=== PATIENT | male | born 1945 | race Hispanic/Latino ===

== ENCOUNTER 2019-11-27 21:26 | Emergency (ER) | payer OTHER ==
[~2019-11-27] VITALS: Ht 177.8 cm; Wt 93.0 kg
[~2019-11-27 21:26] MED LIST: ASPIR 8181 MG PO; ENALAPRIL MALEA20 MG PO; GLIMEPIRIDE2 MG PO; KEFLEX500 MG PO; METOPROLOL TART50 MG PO; SIMVASTATIN20 MG PO; TYLENOL WITH C1 EACH PO
--- OUTSIDE RECORDS SUMMARY | 2019-11-27 21:30 | XMS REPORT ---
Author Author [facility] Address Unknown Phone Unavailable Care Team Providers Care Parking Meter Attendant Name Role Phone Unavailable Unavailable Payers Payer Name Policy Type Policy Number Effective Date Expiration Date Problems This patient has no known problems. Allergies, Adverse Reactions, Alerts Allergy Name Allergy Type Status Severity Reaction(s) Onset Date Inactive Date Treating Clinician Comments No Known Allergies DA Active U 2016-08-27 00:00:00 Medications This patient has no known medications. Results Test Description Test Time Test Comments Text Results Atomic Results Result Comments BLADDER,BIOPSY 2019-10-17 16:47:00 RUN DATE: 10/17/19 [place] - Lab PAGE 1 RUN TIME: 1647 Specimen Inquiry RUN USER: INTERFACE PATIENT: GORGE WARREN LOC: TK #: [id number] AGE/SX: 73/M ROOM: RE10/13/19REG DR: Charli Ivy MD : 45 BED: DIS: STATUS: DEP [facility] TLOC: SPEC #: [id number] RECD: 10/13/19 STATUS: KHADRA [facility] #: [id number] NIYA: 10/13/19- [facility] DR: Charli Ivy MD ENTERED: 10/13/19 SP TYPE: BX FARZAD HOPEPR DR: Judy Pruitt MD ORDERED: GROSS COPIES TO: Charli Ivy MD [address] [place], [place] [id number] Judy Pruitt MD [address] [facility] [place], [place] [id number] PROCEDURES: GROSS (10/17/19103) TISSUES: 1. URINARY BLADDER, NOS - BX 2. URINARY BLADDER, NOS - NTERIOR WALL BX 3. URINARY BLADDER, NOS - LEFT LATERAL WALL 4. URINARY BLADDER, NOS - DOME 5. URINARY BLADDER, NOS - RIGHT LATERAL WALL 6. URINARY BLADDER, NOS - TRIGONE 7. URINARY BLADDER, NOS - POSTERIOR WALL CLINICAL HISTORY COLLECTION DATE: 10/13/2019 FINAL DIAGNOSIS Previous tumor biopsy site, biopsy X 3: CHRONIC INFLAMMATION, FOCAL FIBROSIS, AND FOCAL GRANULOMA FORMATION CONSISTENT WITH BCG THERAPY, BLADDER MUCOSA MUSCULARIS PROPRIA PRESENT NEGATIVE FOR MALIGNANCY Anterior wall of bladder, biopsy: MILD CHRONIC INFLAMMATION, BLADDER MUCOSA NEGATIVE FOR MALIGNANCY Left lateral wall X 2, biopsy: MILD CHRONIC INFLAMMATION AND HEMORRHAGE, BLADDER MUCOSA MUSCULARIS PROPRIA PRESENT CONTINUED ON NEXT PAGE RUN DATE: 10/17/19 [facility] PAGE 2 RUN TIME: 1647 Specimen Inquiry RUN USER: INTERFACE SPEC #: [id number] PATIENT: GORGE WARREN #[id number] (Continued) - FINAL DIAGNOSIS (Continued) NEGATIVE FOR MALIGNANCY Bladder dome, biopsy: MILD CHRONIC INFLAMMATION, BLADDER MUCOSA NEGATIVE FOR MALIGNANCY Right lateral wall of bladder, biopsy: PATCHY MILD CHRONIC INFLAMMATION, BLADDER MUCOSA MUSCULARIS PROPRIA PRESENT NEGATIVE FOR MALIGNANCY Trigone, biopsy: PATCHY MILD CHRONIC INFLAMMATION, BLADDER MUCOSA NEGATIVE FOR MALIGNANCY Posterior wall of bladder, biopsy: MILD CHRONIC INFLAMMATION, BLADDER MUCOSA MUSCULARIS PROPRIA PRESENT NEGATIVE FOR MALIGNANCY DMW/ D [phone] MACROSCOPIC The first specimen is received in formalin, labeled with the patient's name, and identified as "previous tumor site biopsy X3". It consists of three damon-white biopsy fragments measuring from 0.3 to 0.5 cm in greatest dimension. The second specimen is received in formalin, labeled with the patient's name, and identified as "anterior wall". It consists of a damon-brown biopsy fragment measuring 0.2 cm. The third specimen is received in formalin, labeled with the patient's name, and identified as "left lateral wall X2". It consists of a damon biopsy fragment measuring 0.25 cm and a damon-brown biopsy fragment measuring 0.25 cm. The fourth specimen is received in formalin, labeled with the patient's nam e, and identified as "dome". It consists of a damon biopsy fragment measuring 0.3 cm. The fifth specimen is received in formalin, labeled with the patient 's name, and identified as "right lateral wall". It consists of a damon biopsy fragment measuring 0.3 cm. The sixth specimen is received in formalin, labeled with the patient's name and identified as "trigone". It consists of a damon biopsy fragment measuring CONTINUED ON NEXT PAGE RUN DATE: 10/17/19 [facility] PAGE 3 RUN TIME: 1647 Specimen Inquiry RUN USER: INTERFACE SPEC #: [id number] PATIENT: ALBERT WARRENO #[id number] ( Continued) MACROSCOPIC (Continued) 0.2 cm. The seventh specimen is received in formalin labeled with the patient's name, and identified as "posterior wall". It consists of a white-damon biopsy fragment measuring 0.25 cm. GROSS PERFORMED AT [facility] [address] [facility] [place] [address] [phone])[phone] MICROSCOPIC All of the stains, including any controls performed, stain appropriately. MICROSCOPIC PERFORMED AT [facility] [address] [place] [address] (p)[phone] PERFORMING SITE Diagnosis performed at: [facility], [place] [address] [place] [address] Signed SIGNATURE ON FILE Lorena Wilkes MD 10/17/19 7167 END OF REPORT GLUBED 2019-10-13 08:25:00 GLUBED (test code=GLUBED) 112 mg/dL 74-106 Performed by certified shell trim operator at [facility] - XR CYSTOURETHRO [id number] 08:12:00 FAX: Charli Malone MD [phone] Pinch: B St: PRE Name: GORGE CASTILLO [facility] : [birth year] Age/S: 73/M [address] [facility] Unit #: [id number] Loc: [place] [address] Phys: Charli Ivy MD Acct: [id number] Dis Date: Status: PRE SDC PHONE #: [phone] Exam Date: 10/13/2019 0800 FAX #: [phone] Reason: SURGERY EXAMS: CPT CODE: [id number] XR CYSTOURETHRO RETRO 73309 HISTORY: Bladder cancer. COMPARISON: None available. Location: al uoroscopic spot images from the OR: Opacification of both collecti ng system noted. For detailed evaluation please see the operative report. at 0812 Reported and signed by: Yonathan King M.D. CC: Charli Ivy M.D. Techno logist: TANG MOLINA JR Trnscrd Date/Time /By: 10/13/2019 (811) : By: [email or web address] Orig Print D/T: S: 10/13/2019 ( 15) PAGE 1 Signed Report [id number] 06:33:00* Test Item Value Reference Range Comments GLUBED (test code=GLUBED) 123 mg/dL 74-106 Performed by certified shell trim operator at [facility] URINALYSIS [id number] 12:37:00* Test Item Value Reference Range Comments UA COLOR (test code=COLU) Light-Yellow YELLOW UA APPEARANCE (test code=APPU) CLEAR CLEAR UA GLUCOSE DIPSTICK (test code=DGLUU) NEGATIVE mg/dL NEGATIVE UA BILIRUBIN DIPSTICK (test code=BILU) NEGATIVE mg/dL NEGATIVE UA KETONE DIPSTICK (test code=KETU) NEGATIVE mg/dL NEGATIVE UA SPECIFIC GRAVITY (test code=SGU) 1.011 1.001-1.035 UA BLOOD DIPSTICK (test code=HANNAH) Negative mg/dL NEGATIVE UA PH DIPSTICK (test code=HOLLEY) 5.5 5.0-8.0 UA PROTEIN DIPSTICK (test code=PROU) 30 (1+) mg/dL NEGATIVE UA UROBILINIOGEN DIPSTICK (test code=URO) Normal mg/dL NEGATIVE UA NITRITE DIPSTICK (test code=VALERY) NEGATIVE NEGATIVE UA LEUKOCYTE ESTERASE W REFLEX (test code=LEUUR) NEGATIVE Parveen/uL NEGATIVE UA WBC (test code=WBCU) 0-5 per HPF 0-5 UA RBC (test code=RBCU) 0-2 #/HPF 0-5 UA EPITHELIAL CELLS (test code=EPIU) None seen per HPF FEW UA BACTERIA (test code=BACU) NONE SEEN #/HPF NONE UA MUCUS (test code=MUCU) FEW #/LPF FEW COMPREHENSIVE METABOLIC [id number] 12:37:00* Test Item Value Reference Range Comments SODIUM (test code=NA) 139 mmol/L 136-145 POTASSIUM (test code=K) 3.9 mmol/L 3.5-5.1 CHLORIDE (test code=CL) 107.0 mmol/L 98-107 CARBON DIOXIDE (test code=CO2) 29.0 mmol/L 21-32 ANION GAP (test code=GAP) 6.9 10-20 GLUCOSE (test code=GLU) 81 mg/dL 74-106 BLOOD UREA NITROGEN (test code=BUN) 20 mg/dL 7-18 GLOMERULAR FILTRATION RATE (test code=GFR) 54 mL/min >=60 Estimated GFR by using Modified MDRD formula.Chronic kidney disease is defined as either kidney damageor GFR <60 mL/min/1.73 m2 for >3 months. CREATININE (test code=CREAT) 1.30 mg/dL 0.7-1.3 BUN/CREATININE RATIO (test code=BUN/CREA) 15.4 10-20 TOTAL PROTEIN (test code=PROT) 7.4 gram/dL 6.4-8.2 ALBUMIN (test code=ALB) 3.6 g/dL 3.4-5.0 GLOBULIN (test code=GLOB) 3.8 gram/dL 2.7-4.2 ALBUMIN/GLOBULIN RATIO (test code=A/G) 0.9 0.75-1.50 CALCIUM (test code=CA) 8.9 mg/dL 8.5-10.1 BILIRUBIN TOTAL (test code=BILT) 0.20 mg/dL 0.0-1.0 SGOT/AST (test code=AST) 17 IUnit/L 15-37 SGPT/ALT (test code=ALT) 30 IUnit/L 12-78 ALKALINE PHOSPHATASE TOTAL (test code=ALKP) 82 IUnit/L 45-117 Note change in reference range due to change in reagent. URINALYSIS [id number] 12:34:00* Test Item Value Reference Range Comments UA COLOR (test code=COLU) Light-Yellow YELLOW UA APPEARANCE (test code=APPU) CLEAR CLEAR UA GLUCOSE DIPSTICK (test code=DGLUU) NEGATIVE mg/dL NEGATIVE UA BILIRUBIN DIPSTICK (test code=BILU) NEGATIVE mg/dL NEGATIVE UA KETONE DIPSTICK (test code=KETU) NEGATIVE mg/dL NEGATIVE UA SPECIFIC GRAVITY (test code=SGU) 1.011 1.001-1.035 UA BLOOD DIPSTICK (test code=HANNAH) Negative mg/dL NEGATIVE UA PH DIPSTICK (test code=HOLLEY) 5.5 5.0-8.0 UA PROTEIN DIPSTICK (test code=PROU) 30 (1+) mg/dL NEGATIVE UA UROBILINIOGEN DIPSTICK (test code=URO) Normal mg/dL NEGATIVE UA NITRITE DIPSTICK (test code=VALERY) NEGATIVE NEGATIVE UA LEUKOCYTE ESTERASE W REFLEX (test code=LEUUR) NEGATIVE Parveen/uL NEGATIVE UA WBC (test code=WBCU) per HPF 0-5 UA RBC (test code=RBCU) per HPF 0-5 UA EPITHELIAL CELLS (test code=EPIU) per HPF Few UA BACTERIA (test code=BACU) per HPF NONE COMPREHENSIVE METABOLIC [id number] 12:34:00* Test Item Value Reference Range Comments SODIUM (test code=NA) 139 mmol/L 136-145 POTASSIUM (test code=K) 3.9 mmol/L 3.5-5.1 CHLORIDE (test code=CL) 107.0 mmol/L 98-107 CARBON DIOXIDE (test code=CO2) mmol/L 21-32 ANION GAP (test code=GAP) 10-20 GLUCOSE (test code=GLU) mg/dL 74-106 BLOOD UREA NITROGEN (test code=BUN) mg/dL 7-18 GLOMERULAR FILTRATION RATE (test code=GFR) mL/min >=60 CREATININE (test code=CREAT) mg/dL 0.7-1.3 BUN/CREATININE RATIO (test code=BUN/CREA) 10-20 TOTAL PROTEIN (test code=PROT) gram/dL 6.4-8.2 ALBUMIN (test code=ALB) g/dL 3.4-5.0 GLOBULIN (test code=GLOB) gram/dL 2.7-4.2 ALBUMIN/GLOBULIN RATIO (test code=A/G) 0.75-1.50 CALCIUM (test code=CA) mg/dL 8.5-10.1 BILIRUBIN TOTAL (test code=BILT) mg/dL 0.0-1.0 SGOT/AST (test code=AST) IUnit/L 15-37 SGPT/ALT (test code=ALT) IUnit/L 12-78 ALKALINE PHOSPHATASE TOTAL (test code=ALKP) IUnit/L 45-117 - XR CHEST 2 [id number] 12:19:00 FAX: Charli Malone MD [phone] [place]: O St: PRE Name: GORGE CASTILLO [facility] : [birth year] Age/S: 73/M [address] [facility] Unit #: [id number] Loc: [place] [address] Phys: Charli Ivy MD Acct: [id number] Dis Date: Status: PRE SDC PHONE #: [phone] Exam Date: 10/10/2019 1136 FAX #: [phone] Reason: PRE OP EXAMS: CPT CODE: [id number] XR CHEST 2 V 55261 REASON FOR EXAM: PRE OP Exam Order Date: 10/10/2019 11:26 AM Ordering M.DZahra: Charli Ivy MD PROCEDURE: - XR CHEST 2 V COMPARISON: Chest radiograph April 01, 2016 FINDINGS: The lungs are c lear other than mild subsegmental atelectasis in the middle lobe. There i s no pleural effusion or pneumothorax. Pulmonary vascularity is within nor mal limits. Cardiomediastinal silhouette is normal in size for lisa hnique. The mediastinal contours are within normal limits. M ild degenerative changes are present in the lower thoracic spine and also in the acromioclavicular joints. Additionally there appears to be posttrau matic changes in the right acromioclavicular joint which is likely chronic . Chronic appearing post traumatic change are also seen in the posterior r ight seventh and eighth ribs. The visualized upper abdomen is with in normal limits. IMPRESSION: Subsegmental atele ctasis in the middle lobe. Lungs are otherwise clear. Location: [facility] at 1219 Reported and signed by: Harley Ellington MD CC: Charli Ivy M.D. Technologist: Adlo esparza RT(R) Trnscrd Date/Time/By: 10/10/2019 ( 9398) : By: [email or web address] [facility] Print D/T: S: 10/10/2019 (4568) PAGE 1 Signed Report CBC W/AUTO [id number] 12:09:00* Test Item Value Reference Range Comments WHITE BLOOD CELL (test code=WBC) 8.8 K/mm3 4.5-12.5 RED BLOOD CELL (test code=RBC) 4.41 mill/mm3 4.0-5.8 HEMOGLOBIN (test code=HGB) 13.7 gram/dL 13.0-17.5 HEMATOCRIT (test code=HCT) 40.9 % 42.0-52.0 MEAN CELL VOLUME (test code=MCV) 92.7 fL 80-98 MEAN CELL HGB (test code=MCH) 31.1 picogram 27.0-33.0 MEAN CELL HGB CONCETRATION (test code=MCHC) 33.5 gram/dL 33.0-36.0 RED CELL DISTRIBUTION WIDTH (test code=RDW) 12.7 % 11.6-16.2 RED CELL DISTRIBUTION WIDTH SD (test code=RDW-SD) 43.5 fL 37.0-51.0 PLATELET COUNT (test code=PLT) 252 K/mm3 150-450 MEAN PLATELET VOLUME (test code=MPV) 11.1 fL 6.7-11.0 NEUTROPHIL % (test code=NT%) 54.9 % 39.0-69.0 IMMATURE GRANULOCYTE % (test code=IG%) 0.2 % 0.0-5.0 LYMPHOCYTE % (test code=LY%) 30.5 % 25.0-55.0 MONOCYTE % (test code=MO%) 9.7 % 0.0-10.0 EOSINOPHIL % (test code=EO%) 4.1 % 0.0-5.0 BASOPHIL % (test code=BA%) 0.6 % 0.0-1.0 NUCLEATED RBC % (test code=NRBC%) 0.0 % 0-0 NEUTROPHIL # (test code=NT#) 4.80 K/mm3 1.8-7.7 IMMATURE GRANULOCYTE # (test code=IG#) 0.02 x10 3/uL 0-0.03 LYMPHOCYTE # (test code=LY#) 2.67 K/mm3 1.0-5.0 MONOCYTE # (test code=MO#) 0.85 K/mm3 0-0.8 EOSINOPHIL # (test code=EO#) 0.36 K/mm3 0.0-0.5 BASOPHIL # (test code=BA#) 0.05 K/mm3 0.0-0.2 NUCLEATED RBC # (test code=NRBC#) 0.00 K/mm3 0.0-0.1 MANUAL DIFF REQUIRED (test code=MDIFF) NO CBC W/AUTO [id number] 12:05:00* Test Item Value Reference Range Comments WHITE BLOOD CELL (test code=WBC) K/mm3 4.5-12.5 RED BLOOD CELL (test code=RBC) mill/mm3 4.0-5.8 HEMOGLOBIN (test code=HGB) 13.7 gram/dL 13.0-17.5 HEMATOCRIT (test code=HCT) % 42.0-52.0 MEAN CELL VOLUME (test code=MCV) fL 80-98 MEAN CELL HGB (test code=MCH) picogram 27.0-33.0 MEAN CELL HGB CONCETRATION (test code=MCHC) gram/dL 33.0-36.0 RED CELL DISTRIBUTION WIDTH (test code=RDW) % 11.6-16.2 RED CELL DISTRIBUTION WIDTH SD (test code=RDW-SD) fL 37.0-51.0 PLATELET COUNT (test code=PLT) K/mm3 150-450 MEAN PLATELET VOLUME (test code=MPV) fL 6.7-11.0 NEUTROPHIL % (test code=NT%) % 39.0-69.0 IMMATURE GRANULOCYTE % (test code=IG%) % 0.0-5.0 LYMPHOCYTE % (test code=LY%) % 25.0-55.0 MONOCYTE % (test code=MO%) % 0.0-10.0 EOSINOPHIL % (test code=EO%) % 0.0-5.0 BASOPHIL % (test code=BA%) % 0.0-1.0 NEUTROPHIL # (test code=NT#) K/mm3 1.8-7.7 LYMPHOCYTE # (test code=LY#) K/mm3 1.0-5.0 MONOCYTE # (test code=MO#) K/mm3 0-0.8 EOSINOPHIL # (test code=EO#) K/mm3 0.0-0.5 BASOPHIL # (test code=BA#) K/mm3 0.0-0.2 BLADDER,[id number] 17:09:00 RUN DATE: 07/14/19 [place] [facility] PAGE 1 RUN TIME: 1710 Specimen Inqui ry RUN USER: INTERFACE PATIENT: GORGE WARREN ACCT #: [id number] LOC: TK U #: [id number] AGE/SX: 73/M ROOM: RE07/13/19[facility] DR: Charli Ivy MD : 45 BED: DIS: STATUS: [facility] TLOC: SPEC #: [id number] RECD: 07/13/19 STATUS: KHADRA RE #: [id number] NIYA: 07/13/19 [facility] DR: Charli Ivy MD ENTERED: 07/13/19 SP TYPE: BX BLAD OTHR DR: Judy Delgado MD ORDERED: GROSS COPIES TO: Charli Ivy MD [address] [facility] [place] [address] Judy Pruitt MD [address] [place] [address] PROCEDURES: GROSS ( 9-1859) TISSUES: 1. URINARY BLADDER, NOS - TUMOR 2. URINARY BL ADDER, NOS - BASE OT TUMOR CLINICAL HISTORY COLLECTION DATE: 07/13/19 BLADDER TUMOR COMMENT The tissue is entirely submitted for h istologic evaluation. Sections show a lesion with a papillary apperance. The tumor cells are mildly to moderately atypical with scattered cells that are mor e markedly atypical with irregular nuclear contours and hyperchromatic nuclei. 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 Areas o f invasion are not identifed in the majority of the tumor fragments. However, focally tumor is seen invading into muscularis propria. Discrete areas of lymp hovascular invasion are not seen. 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 It consists of irregular fragments of friable pink tissue weighing 16.7 grams and measuring 4.0 x 4.0 x 2.8 cm in aggregate. The tissue is entirely submitted for histolo gic evaluation (1A-1I). The second specimen is received in formalin, lab eled with the patient's name and identified as "base of tumor". It consists o f two biopsies of pink tissue each measuring 0.2 cm in greatest diameter, subm itted as (2). GROSS PERFORMED AT [facility] [address] [place] [address] (P) MICROSCOPIC All of the stains, including any controls perfor med, stain appropriately. MICROSCOPIC PERFORMED AT [facility] [address] [place] [address] (P) [phone] PERFORMING SITE Diagnosis performed at: [facility] [place] [address] [place] [id number] Signed S IGNATURE ON FILE Donovan Muhammad MD 07/14/19 5735 ----- ------- END OF REPORT - MACIEL CYSTOURETHRO [id number] 12:08:00 FAX: Charli Malone MD [phone] Pinch: B St: REG Name: GORGE CASTILLO [facility] : [birth year] Age/S: 73/M [facility] Unit #: [id number] Loc: [facility] [place] [address] Phys: Charli Ivy MD Acct: [id number] Dis Date: Status: REG [facility] PHONE #: [phone] Exam Date: 07/13/2019 1152 FAX #: [phone] Reason: CYSTO EXAMS: CPT CODE: [id number] XR CYSTOURETHRO RETRO 69501 HISTORY: Bladder mass. COMPARISON: No recent images are available. 12 fluoroscopic spot images from the OR: Opacification of both collecting system. For detailed evaluation please see the operative report. at 1208 Reported and signed by: Yonathan King M.D. CC: Charli Ivy M.D. Technologist: Layne Bates(Alejo) Trnscrd Date/Time/By: 019 (4028) : By: [email or web address] Orig Print D/T: S: 07/13/2019 (9424) PAGE 1 Signed Report [id number] 11:26:00* Test Item Value Reference Range Comments GLUBED (test code=GLUBED) 142 mg/dL 74-106 Performed by certified shell trim operator at [facility] COMPREHENSIVE METABOLIC [id number] 11:58:00* Test Item Value Reference Range Comments SODIUM (test code=NA) 137 mmol/L 136-145 POTASSIUM (test code=K) 4.3 mmol/L 3.5-5.1 CHLORIDE (test code=CL) 104.0 mmol/L 98-107 CARBON DIOXIDE (test code=CO2) 26.0 mmol/L 21-32 ANION GAP (test code=GAP) 11.3 10-20 GLUCOSE (test code=GLU) 264 mg/dL 74-106 BLOOD UREA NITROGEN (test code=BUN) 22 mg/dL 7-18 GLOMERULAR FILTRATION RATE (test code=GFR) 50 mL/min >=60 Estimated GFR by using Modified MDRD formula.Chronic kidney disease is defined as either kidney damageor GFR <60 mL/min/1.73 m2 for >3 months. CREATININE (test code=CREAT) 1.40 mg/dL 0.7-1.3 BUN/CREATININE RATIO (test code=BUN/CREA) 15.3 10-20 TOTAL PROTEIN (test code=PROT) 7.4 gram/dL 6.4-8.2 ALBUMIN (test code=ALB) 3.7 g/dL 3.4-5.0 GLOBULIN (test code=GLOB) 3.7 gram/dL 2.7-4.2 ALBUMIN/GLOBULIN RATIO (test code=A/G) 1.0 0.75-1.50 CALCIUM (test code=CA) 9.1 mg/dL 8.5-10.1 BILIRUBIN TOTAL (test code=BILT) 0.40 mg/dL 0.0-1.0 SGOT/AST (test code=AST) 19 IUnit/L 15-37 SGPT/ALT (test code=ALT) 27 IUnit/L 12-78 ALKALINE PHOSPHATASE TOTAL (test code=ALKP) 86 IUnit/L 45-117 Note change in reference range due to change in reagent. COMPREHENSIVE METABOLIC [id number] 11:42:00* Test Item Value Reference Range Comments SODIUM (test code=NA) 137 mmol/L 136-145 POTASSIUM (test code=K) 4.3 mmol/L 3.5-5.1 CHLORIDE (test code=CL) 104.0 mmol/L 98-107 CARBON DIOXIDE (test code=CO2) mmol/L 21-32 ANION GAP (test code=GAP) 10-20 GLUCOSE (test code=GLU) mg/dL 74-106 BLOOD UREA NITROGEN (test code=BUN) mg/dL 7-18 GLOMERULAR FILTRATION RATE (test code=GFR) mL/min >=60 CREATININE (test code=CREAT) mg/dL 0.7-1.3 BUN/CREATININE RATIO (test code=BUN/CREA) 10-20 TOTAL PROTEIN (test code=PROT) gram/dL 6.4-8.2 ALBUMIN (test code=ALB) g/dL 3.4-5.0 GLOBULIN (test code=GLOB) gram/dL 2.7-4.2 ALBUMIN/GLOBULIN RATIO (test code=A/G) 0.75-1.50 CALCIUM (test code=CA) mg/dL 8.5-10.1 BILIRUBIN TOTAL (test code=BILT) mg/dL 0.0-1.0 SGOT/AST (test code=AST) IUnit/L 15-37 SGPT/ALT (test code=ALT) IUnit/L 12-78 ALKALINE PHOSPHATASE TOTAL (test code=ALKP) IUnit/L 45-117 CBC W/AUTO [id number] 11:08:00* Test Item Value Reference Range Comments WHITE BLOOD CELL (test code=WBC) 7.6 K/mm3 4.5-12.5 RED BLOOD CELL (test code=RBC) 4.76 mill/mm3 4.0-5.8 HEMOGLOBIN (test code=HGB) 14.7 gram/dL 13.0-17.5 HEMATOCRIT (test code=HCT) 43.7 % 42.0-52.0 MEAN CELL VOLUME (test code=MCV) 91.8 fL 80-98 MEAN CELL HGB (test code=MCH) 30.9 picogram 27.0-33.0 MEAN CELL HGB CONCETRATION (test code=MCHC) 33.6 gram/dL 33.0-36.0 RED CELL DISTRIBUTION WIDTH (test code=RDW) 12.2 % 11.6-16.2 RED CELL DISTRIBUTION WIDTH SD (test code=RDW-SD) 41.4 fL 37.0-51.0 PLATELET COUNT (test code=PLT) 250 K/mm3 150-450 MEAN PLATELET VOLUME (test code=MPV) 11.4 fL 6.7-11.0 NEUTROPHIL % (test code=NT%) 53.8 % 39.0-69.0 IMMATURE GRANULOCYTE % (test code=IG%) 0.7 % 0.0-5.0 LYMPHOCYTE % (test code=LY%) 30.8 % 25.0-55.0 MONOCYTE % (test code=MO%) 9.4 % 0.0-10.0 EOSINOPHIL % (test code=EO%) 4.5 % 0.0-5.0 BASOPHIL % (test code=BA%) 0.8 % 0.0-1.0 NUCLEATED RBC % (test code=NRBC%) 0.0 % 0-0 NEUTROPHIL # (test code=NT#) 4.10 K/mm3 1.8-7.7 IMMATURE GRANULOCYTE # (test code=IG#) 0.05 x10 3/uL 0-0.03 LYMPHOCYTE # (test code=LY#) 2.35 K/mm3 1.0-5.0 MONOCYTE # (test code=MO#) 0.72 K/mm3 0-0.8 EOSINOPHIL # (test code=EO#) 0.34 K/mm3 0.0-0.5 BASOPHIL # (test code=BA#) 0.06 K/mm3 0.0-0.2 NUCLEATED RBC # (test code=NRBC#) 0.00 K/mm3 0.0-0.1 MANUAL DIFF REQUIRED (test code=MDIFF) NO CBC W/AUTO [id number] 11:00:00* Test Item Value Reference Range Comments WHITE BLOOD CELL (test code=WBC) K/mm3 4.5-12.5 RED BLOOD CELL (test code=RBC) mill/mm3 4.0-5.8 HEMOGLOBIN (test code=HGB) 14.7 gram/dL 13.0-17.5 HEMATOCRIT (test code=HCT) 43.7 % 42.0-52.0 MEAN CELL VOLUME (test code=MCV) fL 80-98 MEAN CELL HGB (test code=MCH) picogram 27.0-33.0 MEAN CELL HGB CONCETRATION (test code=MCHC) gram/dL 33.0-36.0 RED CELL DISTRIBUTION WIDTH (test code=RDW) % 11.6-16.2 RED CELL DISTRIBUTION WIDTH SD (test code=RDW-SD) fL 37.0-51.0 PLATELET COUNT (test code=PLT) K/mm3 150-450 MEAN PLATELET VOLUME (test code=MPV) fL 6.7-11.0 NEUTROPHIL % (test code=NT%) % 39.0-69.0 IMMATURE GRANULOCYTE % (test code=IG%) % 0.0-5.0 LYMPHOCYTE % (test code=LY%) % 25.0-55.0 MONOCYTE % (test code=MO%) % 0.0-10.0 EOSINOPHIL % (test code=EO%) % 0.0-5.0 BASOPHIL % (test code=BA%) % 0.0-1.0 NEUTROPHIL # (test code=NT#) K/mm3 1.8-7.7 LYMPHOCYTE # (test code=LY#) K/mm3 1.0-5.0 MONOCYTE # (test code=MO#) K/mm3 0-0.8 EOSINOPHIL # (test code=EO#) K/mm3 0.0-0.5 BASOPHIL # (test code=BA#) K/mm3 0.0-0.2 [id number] 18:44:00* Test Item Value Reference Range Comments GLUBED (test code=GLUBED) 211 mg/dL 74-106 Performed by certified shell trim operator at [facility]
[2019-11-27] MEDS ORDERED: TRAMADOL HCL 50 MG TAB PO ONE (21:45)
[2019-11-27] MEDS ORDERED: ONDANSETRON HCL 4 MG ORAL DISINTEGRATING TAB PO ONE (22:30)
[2019-11-27] MEDS ORDERED: ONDANSETRON HCL 4 MG ORAL DISINTEGRATING TAB ONE (22:32)
[2019-11-27 22:51] VITALS: BP 158/62
== END 2019-11-27 22:55 | disposition home or self-care (01) ==
LOC: ER 21:26
DX: S16.1XXA Strain of muscle, fascia and tendon at neck level, initial encounter (principal); I10 Essential (primary) hypertension; E11.9 Type 2 diabetes mellitus without complications; E78.5 Hyperlipidemia, unspecified; F32.9 Major depressive disorder, single episode, unspecified; Z85.038 Personal history of other malignant neoplasm of large intestine; Z85.51 Personal history of malignant neoplasm of bladder; Z79.84 Long term (current) use of oral hypoglycemic drugs; Z79.82 Long term (current) use of aspirin; X50.1XXA Overexertion from prolonged static or awkward postures, initial encounter
CPT/HCPCS: 93005; 99283; Q0162

== ENCOUNTER 2023-01-24 09:19 | Emergency (ER) | payer OTHER ==
[~2023-01-24] VITALS: Ht 177.8 cm; Wt 93.0 kg
[2023-01-24 09:53] LABS: BASOPHILS # (AUTO) 0.1 (0.0-0.1); BASOPHILS % 0.9 % (0.0-1.0); EOSINOPHILS # (AUTO) 0.5 (0.0-0.4); EOSINOPHILS % 5.4 % (0.0-6.0); HEMOGLOBIN 15.1 g/dL (14.0-18.0); LYMPHOCYTES # (AUTO) 2.3 (1.0-3.2); LYMPHOCYTES % 25.4 % (18.0-39.1); MEAN CORPUSCULAR HEMOGLOBIN 30.9 pg (28-32); MEAN CORPUSCULAR HGB CONC 33.6 g/dL (31-35); MEAN CORPUSCULAR VOLUME 92.2 fL (81-99); MONOCYTES % 11.6 % (4.4-11.3); NEUTROPHILS % 56.4 % (38.7-80.0); PLATELET COUNT 244 x10e3/uL (140-360); RED BLOOD COUNT 4.88 x10e6/uL (4.3-5.7); RED CELL DISTRIBUTION WIDTH 12.2 % (11.7-14.4)
[2023-01-24] MEDS ORDERED: ONDANSETRON HCL INJ 2MG/ML 2ML 2 MG/ML VIAL IV STA (10:01)
[2023-01-24 10:13] LABS: ALBUMIN 3.8 g/dL (3.5-5.0); ALBUMIN/GLOBULIN RATIO 1.3 (0.8-2.0); ANION GAP 16.2 mmol/L (8-16); CALCIUM 9.6 mg/dL (8.4-10.2); CREATININE, SERUM 1.29 mg/dL (0.72-1.25); POTASSIUM 4.2 mmol/L (3.5-5.1)
[2023-01-24 10:15] LABS: CLARITY,URINE CLEAR (CLEAR); COLOR,URINE YELLOW (YELLOW); LEUKOCYTE ESTERASE ,URINE NEGATIVE (NEGATIVE); NITRITE,URINE NEGATIVE (NEGATIVE)
[2023-01-24] MEDS ORDERED: Morphine 4mg INJECTION 4 MG/ML INJ IV ONE (10:15)
[2023-01-24 10:16] LABS: KETONES,URINE 2+ (NEGATIVE); PROTEIN,URINE DIPSTICK 2+ (NEGATIVE); URINE UROBILINOGEN 0.2 mg/dL (0.2 - 1)
[2023-01-24] MEDS ORDERED: Morphine 4mg INJECTION 4 MG/ML INJ ONE (10:23)
[2023-01-24 10:27] LABS: BACTERIA,URINE FEW /HPF; EPITHELIAL CELLS,URINE FEW /LPF; RBC,URINE 0-5 /HPF (0-5); WBC,URINE (MAN) 0-5 /HPF (0-5)
[2023-01-24] MEDS ORDERED: IOPAMIDOL 370 MG/ML 100 ML INFUS..BTL INJ ONE (11:05)
[2023-01-24] MEDS ORDERED: SODIUM CHLORIDE 0.9% 1000ML 1,000 ML IV ONE (11:15)
[2023-01-24] MEDS ORDERED: ONDANSETRON ODT4 MG PO (13:56)
== END 2023-01-24 14:46 | disposition home or self-care (01) ==
LOC: ER 09:31
DX: R10.30 Lower abdominal pain, unspecified (principal); I10 Essential (primary) hypertension; E11.65 Type 2 diabetes mellitus with hyperglycemia; E78.5 Hyperlipidemia, unspecified; F32.A Depression, unspecified; Z85.038 Personal history of other malignant neoplasm of large intestine; Z85.51 Personal history of malignant neoplasm of bladder; Z85.46 Personal history of malignant neoplasm of prostate
CPT/HCPCS: 36415; 74174; 80053; 81001; 83690; 85025; 99284; J2270; J2405; J7030; Q9967

== ENCOUNTER 2023-02-08 04:27 | Emergency (ER) | payer OTHER ==
[~2023-02-08] VITALS: Ht 177.8 cm; Wt 93.0 kg
[~2023-02-08 04:27] MED LIST changes: +ONDANSETRON ODT4 MG PO
[2023-02-08 04:47] LABS: BASOPHILS # (AUTO) 0.1 (0.0-0.1); BASOPHILS % 0.7 % (0.0-1.0); EOSINOPHILS # (AUTO) 0.8 (0.0-0.4); EOSINOPHILS % 10.1 % (0.0-6.0); HEMATOCRIT 44.9 % (38.2-49.6); HEMOGLOBIN 15.3 g/dL (14.0-18.0); LYMPHOCYTES # (AUTO) 2.1 (1.0-3.2); LYMPHOCYTES % 27.9 % (18.0-39.1); MEAN CORPUSCULAR HEMOGLOBIN 30.9 pg (28-32); MEAN CORPUSCULAR HGB CONC 34.1 g/dL (31-35); MEAN CORPUSCULAR VOLUME 90.7 fL (81-99); MONOCYTES % 13.9 % (4.4-11.3); NEUTROPHILS # (AUTO) 3.5 (2.1-6.9); NEUTROPHILS % 46.7 % (38.7-80.0); PLATELET COUNT 292 x10e3/uL (140-360); RED BLOOD COUNT 4.95 x10e6/uL (4.3-5.7); RED CELL DISTRIBUTION WIDTH 12.4 % (11.7-14.4)
[2023-02-08 04:59] LABS: ALANINE AMINOTRANSFERASE 39 IU/L (0-55); ALBUMIN 3.8 g/dL (3.5-5.0); ALBUMIN/GLOBULIN RATIO 1.2 (0.8-2.0); ALKALINE PHOSPHATASE 76 IU/L (40-150); ANION GAP 16.3 mmol/L (8-16); BLOOD UREA NITROGEN 29 mg/dL (7-26); BUN/CREATININE RATIO 19 (6-25); CALCIUM 9.3 mg/dL (8.4-10.2); CARBON DIOXIDE 23 mmol/L (22-29); CHLORIDE 103 mmol/L (98-107); CREATINE KINASE 45 IU/L (30-200); CREATININE, SERUM 1.52 mg/dL (0.72-1.25); GLUCOSE 175 mg/dL (74-118); POTASSIUM 4.3 mmol/L (3.5-5.1); SODIUM 138 mmol/L (136-145)
[2023-02-08] MEDS ORDERED: KETOROLAC TROMETHAMINE 30 MG/ML VIAL IV STA (05:21)
[2023-02-08] MEDS ORDERED: KETOROLAC TROMETHAMINE 30 MG/ML VIAL ONE (05:22)
[2023-02-08] MEDS ORDERED: ULTRAM 50MG50 MG PO (05:36)
== END 2023-02-08 07:35 | disposition home or self-care (01) ==
LOC: ER 04:33
DX: R06.00 Dyspnea, unspecified (principal); M25.562 Pain in left knee; E11.65 Type 2 diabetes mellitus with hyperglycemia; I10 Essential (primary) hypertension; E78.5 Hyperlipidemia, unspecified; Z85.038 Personal history of other malignant neoplasm of large intestine; Z85.51 Personal history of malignant neoplasm of bladder; Z85.46 Personal history of malignant neoplasm of prostate
CPT/HCPCS: 36415; 71045; 80053; 82550; 82553; 83690; 83880; 84484; 85025; 85379; 93005; 99284; J1885